=== PATIENT | female | born 1945 | race Caucasian/White ===

== ENCOUNTER 2017-10-30 11:04 | Inpatient (IN) | payer BC, OTHER ==
[2017-10-30] VITALS (21 sets, daily range): BP systolic 172–202; BP diastolic 85–143
[~2017-10-30] VITALS: Ht 177.8 cm; Wt 147.9 kg
[2017-10-30] MEDS ORDERED: INSULIN (11:15)
--- NOTE | 2017-10-30 11:27 | ER Report ---
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 Pt without known fall, injury, or complaint per . ROS limited as pt cannot provide answers other than to shake head when asked if she has pain REVIEW OF SYSTEMS: Constitutional: No fever, no chills. Eyes: No discharge. ENT: unk Cardiovascular: unk Respiratory: unk Gastrointestinal: no vomiting Genitourinary: unk Musculoskeletal: unk Skin: no Neurological: unk Remainder of the 14 system rev: No (unable to assess due to ams) Allergies: Coded Allergies: Sulfa (Sulfonamide Antibiotics) (Verified Allergy, Unknown, 10/30/17) latex (Verified Allergy, Unknown, 10/30/17) Home Meds Reported Medications Solifenacin Succinate (VESICARE) 10 Mg Tablet, 10 MG PO 10/30/17 Propranolol Hcl (PROPRANOLOL HCL) 80 Mg Capcr, 80 MG PO QDAY 10/30/17 Omeprazole (OMEPRAZOLE) 20 Mg Tablet.dr, 20 MG PO BID, TAB 10/30/17 Pregabalin (LYRICA) 50 Mg Capsule, 50 MG PO BID, CAPSULE 10/30/17 Lisinopril (LISINOPRIL) 40 Mg Tablet, 40 MG PO QDAY, TAB 10/30/17 Levothyroxine Sodium (LEVOTHYROXINE SODIUM) 50 Mcg Tablet, 150 MCG PO QDAY, TAB 10/30/17 Fluoxetine Hcl (FLUOXETINE HCL) 20 Mg Capsule, 20 MG PO QDAY, CAPSULE 10/30/17 Bupropion Hcl (BUPROPION XL) 150 Mg Tab.er.24h, 300 MG PO QDAY, TAB 10/30/17 Atorvastatin Calcium (LIPITOR) 40 Mg Tablet, 2 TAB PO QDAY, TAB 10/30/17 Aspirin (Children's Aspirin) 81 Mg Tab.chew 10/30/17 [Insulin] No Conflict Check 10/30/17 Past Medical/Surgical History dm, poss prior stroke Reviewed Nurses Notes: Yes Hx Substance Use Disorder: No Hx Alcohol Use: No Constitutional Vital Sign - Last 24 Hours 10/30/17 10/30/17 10/30/17 10/30/17 11:07 11:15 11:23 11:30 Temp 98.0 Pulse 54 Resp 20 B/P (MAP) 174/95 149/96 (113) 134/105 (115) Pulse Ox 94 O2 Delivery Nasal Cannula O2 Flow Rate 2.0 10/30/17 10/30/17 10/30/17 10/30/17 11:34 11:49 11:54 12:09 Pulse 52 51 52 53 Resp 18 17 21 21 Pulse Ox 95 95 95 93 10/30/17 10/30/17 10/30/17 10/30/17 12:24 12:30 12:39 12:45 Pulse 53 52 Resp 16 15 B/P (MAP) 186/83 (117) 170/90 (116) 167/84 (111) Pulse Ox 93 94 10/30/17 10/30/17 10/30/17 10/30/17 12:50 13:00 13:15 13:20 Pulse 51 58 Resp 16 15 B/P (MAP) 161/82 (108) 171/92 (118) Pulse Ox 93 91 Physical Exam General Appearance: pt opens eyes to command, nods, says 'mmhmm' that seems to be an affirmative to answers, follows simple commands Eyes: Pupils equal and round no pallor or injection. Unable to assess eom or nystagmus ENT, Mouth: Mucous membranes are moist. Respiratory: There are no retractions, lungs are clear to auscultation. Cardiovascular: irreg rate, reg rhythm, no murmurs Gastrointestinal: Abdomen is soft and non tender, no masses, bowel sounds normal. There are multiple areas of days- old ecchymosis accross upper right abd and lower left ( attributes this to fall from three huitron 5 days ago) Neurological: unable to fully assess cn's, though face is symmetric, cannot fully assess mimetics; rases both arms for 5 sec, left wrist tremor noted. Appears to be able to detect lt touch, attempts to plantar flex feet and contracts legs against gravity, similar bilat, neg babinski Skin: Warm and dry, no rashes. Musculoskeletal: Neck is supple non tender. Extremities are nontender, nonswollen. Occ scratches on knees from 5 d ago No back contusions, no ttp spine DIFFERENTIAL DIAGNOSIS: After history and physical exam differential diagnosis was considered for altered mental status including but not limited to hypoglycemia, infectious process, electrolyte abnormality, head injury and intoxicants, cva, ich Medical Decision Making Data Points Result Diagram: 10/30/17 1252 10/30/17 1252 Laboratory Hematology Test 10/30/17 12:18 10/30/17 12:52 10/30/17 13:52 Urine Color Yellow Urine Clarity Cloudy Urine pH 6.0 pH (4.8-9.5) Urine Specific [place] 1.011 Urine Protein 100 mg/dL (NEGATIVE) Urine Glucose (UA) Negative mg/dL (NEGATIVE) Urine Ketones Negative mg/dL (NEGATIVE) Urine Blood Small (NEGATIVE) Urine Nitrite Negative (NEGATIVE) Urine Bilirubin Negative (NEGATIVE) Urine Urobilinogen 4.0 mg/dL (0.2-1.9) Urine Leukocyte Esterase Small (NEGATIVE) Urine RBC 5 /HPF (0-2/HPF) Urine WBC 40 /HPF (0-5/HPF) Urine WBC Clumps Few /HPF Urine Squamous Epithelial Cells None /LPF (NONE-FEW) Urine Bacteria Many /HPF (NONE-FEW) Urine Mucus Few /HPF (NONE-FEW) Red Blood Count 4.76 M/uL (4.17-5.56) Mean Corpuscular Volume 84.1 fL (80.0-96.0) Mean Corpuscular Hemoglobin 27.8 pg (26.0-33.0) Mean Corpuscular Hemoglobin Concent 33.1 g/dL (32.0-36.0) Red Cell Distribution Width 16.4 % (11.5-14.5) Mean Platelet Volume 11.3 fL (7.2-11.1) Neutrophils (%) (Auto) 76.6 % (39.4-72.5) Lymphocytes (%) (Auto) 19.2 % (17.6-49.6) Monocytes (%) (Auto) 3.9 % (4.1-12.4) Eosinophils (%) (Auto) 0.0 % (0.4-6.7) Basophils (%) (Auto) 0.3 % (0.3-1.4) Nucleated RBC Relative Count (auto) 0.0 /100WBC Neutrophils # (Auto) 4.6 K/uL (2.0-7.4) Lymphocytes # (Auto) 1.1 K/uL (1.3-3.6) Monocytes # (Auto) 0.2 K/uL (0.3-1.0) Eosinophils # (Auto) 0.0 K/uL (0.0-0.5) Basophils # (Auto) 0.0 K/uL (0.0-0.1) Nucleated RBC Absolute Count (auto) 0.00 K/uL Sodium Level 143 mmol/L (137-145) Potassium Level 3.8 mmol/L (3.5-5.0) Chloride Level 106 mmol/L (98-107) Carbon Dioxide Level 30 mmol/L (22-31) Blood Urea Nitrogen 26 mg/dl (7-18) Creatinine 1.30 mg/dl (0.52-1.04) Glomerular Filtration Rate Calc 40.5 Random Glucose 151 mg/dl (75-110) Calcium Level 9.2 mg/dl (8.4-10.2) Magnesium Level 1.7 mg/dl (1.7-2.2) Total Bilirubin 1.0 mg/dl (0.2-1.3) Aspartate Amino Transf (AST/SGOT) 35 U/L (0-35) Alanine Aminotransferase (ALT/SGPT) 34 U/L (0-56) Alkaline Phosphatase 112 U/L (0-126) Ammonia 34 UMOL/L (9-33) Troponin I 0.031 ng/ml Total Protein 7.6 g/dl (6.3-8.2) Albumin 3.5 g/dl (3.5-5.0) Lactate 1.1 mmol/L (0.7-2.1) Chemistry Test 10/30/17 12:18 10/30/17 12:52 10/30/17 13:52 Urine Color Yellow Urine Clarity Cloudy Urine pH 6.0 pH (4.8-9.5) Urine Specific [place] 1.011 Urine Protein 100 mg/dL (NEGATIVE) Urine Glucose (UA) Negative mg/dL (NEGATIVE) Urine Ketones Negative mg/dL (NEGATIVE) Urine Blood Small (NEGATIVE) Urine Nitrite Negative (NEGATIVE) Urine Bilirubin Negative (NEGATIVE) Urine Urobilinogen 4.0 mg/dL (0.2-1.9) Urine Leukocyte Esterase Small (NEGATIVE) Urine RBC 5 /HPF (0-2/HPF) Urine WBC 40 /HPF (0-5/HPF) Urine WBC Clumps Few /HPF Urine Squamous Epithelial Cells None /LPF (NONE-FEW) Urine Bacteria Many /HPF (NONE-FEW) Urine Mucus Few /HPF (NONE-FEW) White Blood Count 6.0 k/uL (4.5-11.0) Red Blood Count 4.76 M/uL (4.17-5.56) Hemoglobin 13.3 g/dL (12.0-16.0) Hematocrit 40.1 % (34.0-47.0) Mean Corpuscular Volume 84.1 fL (80.0-96.0) Mean Corpuscular Hemoglobin 27.8 pg (26.0-33.0) Mean Corpuscular Hemoglobin Concent 33.1 g/dL (32.0-36.0) Red Cell Distribution Width 16.4 % (11.5-14.5) Platelet Count 128 K/uL (150-450) Mean Platelet Volume 11.3 fL (7.2-11.1) Neutrophils (%) (Auto) 76.6 % (39.4-72.5) Lymphocytes (%) (Auto) 19.2 % (17.6-49.6) Monocytes (%) (Auto) 3.9 % (4.1-12.4) Eosinophils (%) (Auto) 0.0 % (0.4-6.7) Basophils (%) (Auto) 0.3 % (0.3-1.4) Nucleated RBC Relative Count (auto) 0.0 /100WBC Neutrophils # (Auto) 4.6 K/uL (2.0-7.4) Lymphocytes # (Auto) 1.1 K/uL (1.3-3.6) Monocytes # (Auto) 0.2 K/uL (0.3-1.0) Eosinophils # (Auto) 0.0 K/uL (0.0-0.5) Basophils # (Auto) 0.0 K/uL (0.0-0.1) Nucleated RBC Absolute Count (auto) 0.00 K/uL Glomerular Filtration Rate Calc 40.5 Calcium Level 9.2 mg/dl (8.4-10.2) Magnesium Level 1.7 mg/dl (1.7-2.2) Total Bilirubin 1.0 mg/dl (0.2-1.3) Aspartate Amino Transf (AST/SGOT) 35 U/L (0-35) Alanine Aminotransferase (ALT/SGPT) 34 U/L (0-56) Alkaline Phosphatase 112 U/L (0-126) Ammonia 34 UMOL/L (9-33) Troponin I 0.031 ng/ml Total Protein 7.6 g/dl (6.3-8.2) Albumin 3.5 g/dl (3.5-5.0) Lactate 1.1 mmol/L (0.7-2.1) Urinalysis Test 10/30/17 12:18 Urine Color Yellow Urine Clarity Cloudy Urine pH 6.0 pH (4.8-9.5) Urine Specific [place] 1.011 Urine Protein 100 mg/dL (NEGATIVE) Urine Glucose (UA) Negative mg/dL (NEGATIVE) Urine Ketones Negative mg/dL (NEGATIVE) Urine Blood Small (NEGATIVE) Urine Nitrite Negative (NEGATIVE) Urine Bilirubin Negative (NEGATIVE) Urine Urobilinogen 4.0 mg/dL (0.2-1.9) Urine Leukocyte Esterase Small (NEGATIVE) Urine RBC 5 /HPF (0-2/HPF) Urine WBC 40 /HPF (0-5/HPF) Urine WBC Clumps Few /HPF Urine Squamous Epithelial Cells None /LPF (NONE-FEW) Urine Bacteria Many /HPF (NONE-FEW) Urine Mucus Few /HPF (NONE-FEW) EKG/Imaging EKG Interpretation 12 lead EKG: Rhythm: sinus bradycardia Raven: normal QRS: slightly widened ST segments: normal prolonged qt Monitor Interpretation: Sinus Bradycardia ED Course/Re-evaluation ED Course Pt presents with global ams, without e/o clear focal neurologic deficit; upon further history, states that she fell last night and struck toilet with her back; did not appear to hit head but pt and unsure of this. (Pt also had fall 5 d ago from three huitron while it was stopped; has healing contusions from this but no apparent ttp at sites of injury. No e/o cellulitis or ulcers. pt ultimately improves alertness in ED and repeat neurologic assessment shows 5/5 strength, nl sensation bilaterally without e/o focal deficit. CT's unremarkable; upon catheterization pt with foul smelling, cloudy urine, with many wbc's; given improvement with ivf and this as only focal exam finding upon initial assessment, will tx for uti/ early urosepsis. Continue to reassess and re-evaluate pt's symptoms and progress. D/w and admitted to hospitalist at 1400. Decision to Disposition Date: Oct 30, 2017 Decision to Disposition Time: 14:00 Depart Departure Latest Vital Signs Vital Signs Date Time Temp Pulse Resp B/P (MAP) Pulse Ox O2 Delivery O2 Flow Rate FiO2 10/30/17 13:20 58 15 91 10/30/17 13:15 171/92 (118) 10/30/17 11:23 2.0 10/30/17 11:07 98.0 Nasal Cannula Impression: Primary Impression: Altered mental status Additional Impression: UTI (urinary tract infection) Condition: Improved Disposition: Admitted from ER Problem Qualifiers Primary Impression: Altered mental status Altered mental status type: delirium Qualified Codes: R41.0 - Disorientation, unspecified Additional Impression: UTI (urinary tract infection) Urinary tract infection type: acute cystitis Hematuria presence: without hematuria Qualified Codes: N30.00 - Acute cystitis without hematuria ZACHARY WU MD Oct 30, 2017 11:27
--- NOTE | 2017-10-30 11:32 | EKG ---
FACILITY: [facility] - [place] PATIENT NAME: BOO HARRELL : [id number] MR: [id number] V: [id number] EXAM DATE: ORDERING PHYSICIAN: ZACHARY WU TECHNOLOGIST: JOSEF Vazquez Reason : ARRHYTHMIA Blood Pressure : / mmHG Vent. Rate : 052 BPM Atrial Rate : 052 BPM P-R Int : 184 ms QRS Dur : 118 ms QT Int : 508 ms P-R-T Axes : 009 -39 083 degrees QTc Int : 472 ms Sinus bradycardia Left axis deviation Left ventricular hypertrophy with QRS widening Nonspecific ST and T wave abnormality Prolonged QT Abnormal ECG No previous ECGs available Confirmed by Vin Du ([id number]) on 10/30/2017 10:54:23 PM Referred By: JAZMIN Confirmed By:Vin Lott
[2017-10-30] MEDS ORDERED: BUPR-124 PO (11:33)
[2017-10-30] MEDS ORDERED: PROL80 PO (11:33)
[2017-10-30] MEDS ORDERED: PREG50CA48 PO (11:33)
[2017-10-30] MEDS ORDERED: FLUO-177 PO (11:33)
[2017-10-30] MEDS ORDERED: OMEP-137 PO (11:33)
[2017-10-30] MEDS ORDERED: ASPI-870 (11:33)
[2017-10-30] MEDS ORDERED: ATOR40TA24 PO (11:33)
[2017-10-30] MEDS ORDERED: LISI-374 PO (11:33)
[2017-10-30] MEDS ORDERED: SOLI10TA8 PO (11:33)
[2017-10-30] MEDS ORDERED: LEVO50TA86 PO (11:33)
--- NOTE | 2017-10-30 12:01 | RADIOLOGY IMAGING REPORT ---
FACILITY: [facility] - [place] PATIENT NAME: Maria Victoria Boggs : 1945 MR: [id number] V: [id number] EXAM DATE: ORDERING PHYSICIAN: ZACHARY WU TECHNOLOGIST: Location: [facility] Patient: Maria Victoria Boggs : 1945 Visit/Account:[id number] Date of Sevice: 10/30/2017 CHEST SINGLE AP COMPARISONS: None. ADDITIONAL PERTINENT HISTORY: Hypoxia FINDINGS: Cardiomediastinal silhouette: Negative. Pulmonary vasculature: Negative. Lung steve: Negative. Pleural spaces: Negative. Osseous structures: Negative. Surrounding soft tissues: Negative. IMPRESSION: No evidence of acute cardiopulmonary disease. Report Dictated By: Bobby Ramos MD at 10/30/2017 11:56 AM Report E-Signed By: Bobby Ramos MD at 10/30/2017 11:57 AM WSN:[id number]
--- NOTE | 2017-10-30 12:42 | RADIOLOGY IMAGING REPORT ---
[place] [facility] [place]: Maria Victoria Boggs : 1945 MR: [id number] V: [id number] EXAM DATE: ORDERING PHYSICIAN: ZACHARY UW TECHNOLOGIST: Location: [facility] Patient: Maria Victoria Boggs : 1945 Visit/Account:[id number] Date of Sevice: 10/30/2017 CT Head without contrast and CT Cervical spine: Indication: Decreased level of consciousness. Unresponsive. Fall. Comparison: None available Technique: CT head: Axial CT images were obtained through the brain from the skull base to the verte x without administration of IV contrast. Reformatted coronal and sagittal images were also obtained. Technique: CT cervical spine: Axial CT imaging of the cervical spine was performed. 2-D sagittal and coronal CT reformats were also obtained. One of the following dose optimization techniques was utilized in the performance of this exam: Autom ated exposure control; adjustment of the mA and/or kV according to the patient's size; or use of an i terative reconstruction technique. Specific details can be referenced in the facility's radiology C T exam operational policy. FINDINGS: CT head: No intracranial bleed, midline shift, mass effect, extra-axial fluid collection or hydrocephalus. Age -related cerebral atrophy. Ventricular white matter ischemic changes consistent small vessel disease. Escobar/white matter differentiation appears normal. Mild bilateral internal carotid artery desiccation 's. Escobar/white matter differentiation appears normal. Bony structures show no fractures or lesions. T here is some hyperostosis frontalis. The sinuses and mastoids visualized are clear. CT cervical spine: The vertebral bodies are aligned. No fracture or facet dislocation. No aggressive bony lesions. There is diffuse moderate degenerative changes including disc space narrowing, endplate changes, osteophyt es and facet arthropathy. No discrete bony canal stenosis. Multilevel neural foramina narrowing. Endp lates are maintained. No obvious disc herniation. Prevertebral soft tissues are normal. Surrounding s oft tissues are unremarkable. Lung apices are clear. IMPRESSION: 1. CT of the head shows senescent changes without acute abnormality. 2. No acute osseous or acute alignment abnormality of the cervical spine. Degenerative changes. Report Dictated By: John Abreu at 10/30/2017 12:30 PM Report E-Signed By: John Abreu at 10/30/2017 12:38 PM WSN:[id number]
--- NOTE | 2017-10-30 12:42 | RADIOLOGY IMAGING REPORT ---
FACILITY: [facility] PATIENT NAME: Maria Victoria Boggs : 1945 MR: [id number] V: [id number] EXAM DATE: ORDERING PHYSICIAN: ZACHARY WU TECHNOLOGIST: Location: [facility] - [place] Patient: Maria Victoria Boggs : 1945 Visit/Account:[id number] Date of Sevice: 10/30/2017 CT Head without contrast and CT Cervical spine: Indication: Decreased level of consciousness. Unresponsive. Fall. Comparison: None available Technique: CT head: Axial CT images were obtained through the brain from the skull base to the verte x without administration of IV contrast. Reformatted coronal and sagittal images were also obtained. Technique: CT cervical spine: Axial CT imaging of the cervical spine was performed. 2-D sagittal and coronal CT reformats were also obtained. One of the following dose optimization techniques was utilized in the performance of this exam: Autom ated exposure control; adjustment of the mA and/or kV according to the patient's size; or use of an i terative reconstruction technique. Specific details can be referenced in the facility's radiology C T exam operational policy. FINDINGS: CT head: No intracranial bleed, midline shift, mass effect, extra-axial fluid collection or hydrocephalus. Age -related cerebral atrophy. Ventricular white matter ischemic changes consistent small vessel disease. Escobar/white matter differentiation appears normal. Mild bilateral internal carotid artery desiccation 's. Escobar/white matter differentiation appears normal. Bony structures show no fractures or lesions. T here is some hyperostosis frontalis. The sinuses and mastoids visualized are clear. CT cervical spine: The vertebral bodies are aligned. No fracture or facet dislocation. No aggressive bony lesions. There is diffuse moderate degenerative changes including disc space narrowing, endplate changes, osteophyt es and facet arthropathy. No discrete bony canal stenosis. Multilevel neural foramina narrowing. Endp lates are maintained. No obvious disc herniation. Prevertebral soft tissues are normal. Surrounding s oft tissues are unremarkable. Lung apices are clear. IMPRESSION: 1. CT of the head shows senescent changes without acute abnormality. 2. No acute osseous or acute alignment abnormality of the cervical spine. Degenerative changes. Report Dictated By: John Abreu at 10/30/2017 12:30 PM Report E-Signed By: John Abreu at 10/30/2017 12:38 PM WSN:[id number]
[2017-10-30 13:02] LABS: PLATELET COUNT, AUTOMATED 128 K/uL (150-450)
[2017-10-30] MEDS ORDERED: NS(*) 0.9% 1000 ML BAG 1,000 ML IV ONE (13:35)
[2017-10-30] MEDS ORDERED: cefTRIAXone 2 GM VIAL IVP ONE (13:35)
[2017-10-30] MEDS ORDERED: FLUSH 10 ML SYR IVP PRN (17:30)
[2017-10-30] MEDS ORDERED: ASPIRIN 300 MG SUPP PR ONE (17:45)
[2017-10-30] MEDS ORDERED: NS(*) 0.9% 1000 ML BAG 1,000 ML IV PRN (19:10)
[2017-10-30] MEDS ORDERED: LANI SUBQ (19:32)
--- NOTE | 2017-10-30 20:03 | EKG ---
[place] [facility] [place]IENT NAME: BOO HARERLL : [id number] MR: [id number] V: [id number] EXAM DATE: ORDERING PHYSICIAN: DOMINIC LOTT TECHNOLOGIST: CELSA Vazquez Reason : Blood Pressure : / mmHG Vent. Rate : 053 BPM Atrial Rate : 053 BPM P-R Int : 186 ms QRS Dur : 124 ms QT Int : 534 ms P-R-T Axes : 044 -30 095 degrees QTc Int : 501 ms Sinus bradycardia Left axis deviation Left ventricular hypertrophy with QRS widening and repolarization abnormality Abnormal ECG When compared with ECG of 30-OCT-2017 11:26, T wave inversion now evident in Lateral leads Confirmed by Dominic Du ([id number]) on 10/30/2017 10:56:38 PM Referred By: Confirmed By:Dominic Lott
--- NOTE | 2017-10-30 20:07 | RADIOLOGY IMAGING REPORT ---
FACILITY: [facility] PATIENT NAME: Maria Victoria Boggs : 1945 MR: [id number] V: [id number] EXAM DATE: ORDERING PHYSICIAN: VENKATA MARCIAL TECHNOLOGIST: Location: [facility] - [place], [place] Patient: Maria Victoria Boggs : 1945 Visit/Account:[id number] Date of Sevice: 10/30/2017 EXAMINATION: Brain MRI without IV contrast HISTORY: Aphasia, weakness, confusion. COMPARISON: Head CT from the same day. TECHNIQUE: Multi-planar, multi-sequence brain MRI was performed without IV contrast administration. FINDINGS: Images are mildly degraded by motion artifact. Brain and other intracranial structures: Mild cerebral volume loss with corresponding sulcal and jules tricular prominence. Mild patchy T2 hyperintense foci scattered within the cerebral white matter. No midline shift, mass, hemorrhage, or acute infarct. Calvarium / scalp: Negative. Skull base: Negative. Visualized sinuses / orbits: Negative. Visualized upper neck: A 1.8 cm cyst in the posterior nasopharynx at the midline. IMPRESSION: Images are mildly degraded by motion artifact. No acute intracranial abnormality. No acute infarct. Mild white matter changes, likely chronic small vessel ischemic changes. A 1.8 cm cyst in the posterior nasopharynx at the midline. This could represent a pharyngeal mucosal cyst or Tornwaldt cyst. Report Dictated By: Anthony Gomez MD at 10/30/2017 7:56 PM Report E-Signed By: Anthony Gomez MD at 10/30/2017 8:04 PM WSN:[id number]
[2017-10-30] MEDS: hydrALAZINE HCL 20 MG/ML VIAL IVP PRN (21:05)
--- NOTE | 2017-10-30 21:21 | History & Physical ---
History of Present Illness Chief Complaint AMS History of Present Illness 72F presented with decreased LOC when was unable to awaken her. Fell last night sometime before 1800 backwards and hit head on toilet. found her with impact hard enough that the toilet was cracked. Unknown if lost consciousness. In ER continued to have AMS. CT head and spine negative for Fx, bleed. UA was weakly positive and patient admitted for UTI. On arrival to floor patient is very lethargic GCS 9, improved when I arrived to evaluate to approx 11. Word finding difficulty noted and weak lower R extremity with possible L side facial droop. MRI ordered which was negative for infarct, mass effect. TSH WNL. History Problems: (1) Diabetes (2) Hypothyroid (3) Morbid obesity with BMI of 40.0-44.9, adult Home Meds Reported Medications Insulin Glargine (LANTUS) 100 Unit/Ml Soln, 1 UNIT SUBQ DAILY, ML 10/30/17 Solifenacin Succinate (VESICARE) 10 Mg Tablet, 10 MG PO 10/30/17 Propranolol Hcl (PROPRANOLOL HCL) 80 Mg Capcr, 80 MG PO QDAY 10/30/17 Omeprazole (OMEPRAZOLE) 20 Mg Tablet.dr, 20 MG PO BID, TAB 10/30/17 Pregabalin (LYRICA) 50 Mg Capsule, 50 MG PO BID, CAPSULE 10/30/17 Lisinopril (LISINOPRIL) 40 Mg Tablet, 40 MG PO QDAY, TAB 10/30/17 Levothyroxine Sodium (LEVOTHYROXINE SODIUM) 50 Mcg Tablet, 150 MCG PO QDAY, TAB 10/30/17 Fluoxetine Hcl (FLUOXETINE HCL) 20 Mg Capsule, 20 MG PO QDAY, CAPSULE 10/30/17 Bupropion Hcl (BUPROPION XL) 150 Mg Tab.er.24h, 300 MG PO QDAY, TAB 10/30/17 Atorvastatin Calcium (LIPITOR) 40 Mg Tablet, 2 TAB PO QDAY, TAB 10/30/17 Aspirin (Children's Aspirin) 81 Mg Tab.chew 10/30/17 Discontinued Reported Medications [Insulin] No Conflict Check 10/30/17 Allergies: Coded Allergies: Sulfa (Sulfonamide Antibiotics) (Verified Allergy, Unknown, 10/30/17) latex (Verified Allergy, Unknown, 10/30/17) Patient History: FHx: cancer of ovary Hx Alcohol Use: No (Unable to retreive info at this time d/t pt MS.) Hx Substance Use Disorder: No Review of Systems Other Unable to obtain 2/2 mental status Exam Vital Signs Vital Signs Date Time Temp Pulse Resp B/P (MAP) Pulse Ox O2 Delivery O2 Flow Rate FiO2 10/30/17 21:15 98.4 55 15 186/90 (122) 92 Nasal Cannula 2.0 General Appearance: Other (lethargic, ) Neuro: Other (word finding difficulties.) Eyes: PERRLA ENT: Normal Neck: No Masses (bruising on occiput) Cardiovascular: Normal Rhythm & Peripheral Pulses Respiratory: No Respiratory Distress Chest: No Tenderness GI: Abd Soft and Non-Tender Lymph: Cervical Nodes Benign Musculoskeletal: Other (+ lower extremity weakness) Extremities: Soft and Non Tender, Warm, Pulses, Perfused, Edema Integumentary: Skin Intact without Lesion / Mass Medical Decision Making Data Points Result Diagram: 10/30/17 1252 10/30/17 1252 Assessment and Plan Problems: (1) Altered mental status Status: Acute Assessment & Plan: CT negative for bleed or mass effect, no Fx, MRI negative for acute infarct. No hypoglycemia, TSH wnl. Check T3/T4. Concern for closed head injury with decreased level of consciousness. GCS 11 at admission, improved to 12. Continues to have word finding problems and answers yep at times when cant come up with answer. ASA given rectally as patient unsafe to swallow. Call placed to trauma services in [facility] to discuss case given limited neurologic availability at [facility]. (2) Diabetes Assessment & Plan: On Lantus, accucheck achs. Will decrease Lantus if possibly limited PO intake tomorrow. (3) Morbid obesity with BMI of 40.0-44.9, adult Assessment & Plan: BMI 44.2. (4) Hypothyroid Assessment & Plan: On Levothyroxine, continue. (5) Asymptomatic bacteriuria Assessment & Plan: Questionable UA, no signs symptoms infections. Will monitor off Abx at this time. Venous Thromboembolism Antithrombotics Is Pt On Any Antithrombotics?: Yes Exam Sepsis Risk: No Definite Risk Problem Qualifiers (1) Altered mental status: Coma depth: Naldo coma 9-12 Coma timing: at hospital admission DOMINIC RAUSCH DO Oct 30, 2017 21:21
[2017-10-31] VITALS (63 sets, daily range): BP systolic 160–202; BP diastolic 75–144; Ht 177.8 cm; Wt 147.9 kg
[2017-10-31] MEDS: LABETALOL HCL 100 MG/20ML VIAL IVP PRN ×4 (00:13→19:30)
[2017-10-31 05:35] LABS: PLATELET COUNT, AUTOMATED 96 K/uL (150-450)
--- NOTE | 2017-10-31 08:46 | Hospitalist Progress Note ---
Subjective Progress Notes Subjective She is awake and alert. She will answer some simple questions, but is still oriented only to person. No fever. Physical Exam Vital Signs Date Time Temp Pulse Resp B/P (MAP) Pulse Ox O2 Delivery O2 Flow Rate FiO2 10/31/17 06:15 98.5 54 18 160/80 (106) 91 2.0 10/31/17 03:00 Nasal Cannula Intake and Output 10/31/17 06:59 Intake Total 1815 ml Output Total 1900 ml Balance -85 ml Intake IV Total 1815 ml Output Urine Total 1900 ml # Bowel Movements 1 General Appearance: Alert, Awake Neuro: Other (some rigidity in all extremities upper slightly > lower/she does move all extremities very slowly/generalized weakness all groups, but no obvious focal deficits/she does not follow all commands, but is able to do some simple requests) Eyes: PERRLA ENT: Oropharynx Clear, Other (mucosa dry) Neck: No Masses, Other (short/thick ) Cardiovascular: Regular Rate and Rhythm (no murmur noted) Respiratory: Other (poor effort, but fairly clear) Chest: No Tenderness GI: Other (obese/soft/nontender/BS present) Lymph: No Adenopathy Extremities: Warm, Perfused Integumentary: Generalized Fragile Skin Result Diagram: 10/31/1752010/31/17520 Monitor Interpretation: Sinus Bradycardia Assessment and Plan Problems: (1) Altered mental status Status: Acute Assessment & Plan: CT negative for bleed or mass effect and MRI negative for acute infarct. No hypoglycemia, TSH in normal range - T3/T4 pending. She did have several falls with at least two closed head injuries in past few days. She also appears to have UTI (on Rocephin). She is additionally on at least four medications which could contribute to potential serotonin syndrome (fluoxetine, bupropion, pregabalin, solifenacin). Overall, she has had some minor improvements over the past 12 hours. Will plan on treating UTI, holding her usual medications, giving IV fluids, monitoring closely in ICU. If she does not continue to improve, will need to consider further evaluation. (2) Diabetes Assessment & Plan: Follow glucoses, use SSI if needed. Will resume ADA diet when safe to take PO. At that time, would resume her Lantus as well. (3) Hypothyroid Assessment & Plan: On Levothyroxine. Will give IV while she is not taking PO well. (4) UTI (urinary tract infection) Status: Acute Assessment & Plan: On IV Rocephin. Culture pending. (5) Closed head injury Status: Acute Assessment & Plan: She has had at least two significant falls where she struck her head. She may have a component of concussion/post-concussion symptoms as well. (6) Morbid obesity with BMI of 40.0-44.9, adult Assessment & Plan: BMI 44.2. Exam Sepsis Risk: No Definite Risk Problem Qualifiers (1) Altered mental status: Coma depth: [place] coma 9-12 Coma timing: at hospital admission (2) UTI (urinary tract infection): Urinary tract infection type: acute cystitis Hematuria presence: without h ematuria Qualified Codes: N30.00 - Acute cystitis without hematuria ELA MILTON MD Oct 31, 2017 08:46
[2017-10-31] MEDS: cefTRIAXone 1 GM VIAL IVP SCH (08:51)
[2017-10-31] MEDS: NS(*) 0.9% 1000 ML BAG 1,000 ML IV PRN ×2 (08:55→17:16)
[2017-10-31] MEDS ORDERED: ENOXAPARIN 40 MG/0.4ML SYR SC SCH (09:00)
[2017-10-31] MEDS: LEVOTHYROXINE SOD 100 MCG VIAL IVP SCH (09:26)
[2017-10-31] MEDS: hydrALAZINE HCL 20 MG/ML VIAL IVP PRN ×2 (14:54→21:53)
[2017-11-01] VITALS (47 sets, daily range): BP systolic 142–191; BP diastolic 59–99
[2017-11-01] MEDS: LABETALOL HCL 100 MG/20ML VIAL IVP PRN ×4 (01:08→17:46)
[2017-11-01] MEDS: NS(*) 0.9% 1000 ML BAG 1,000 ML IV PRN ×3 (01:08→18:36)
[2017-11-01 05:01] LABS: PLATELET COUNT, AUTOMATED 99 K/uL (150-450)
[2017-11-01] MEDS: cefTRIAXone 1 GM VIAL IVP SCH (09:07)
[2017-11-01] MEDS: LEVOTHYROXINE SOD 100 MCG VIAL IVP SCH (09:22)
--- NOTE | 2017-11-01 09:24 | Hospitalist Progress Note ---
Subjective Progress Notes Subjective This patient was admitted for altered mental status. She had no acute events overnight. Patient Complains of: Cardiovascular: No: Chest Pain Respiratory: No: Shortness of Breath Physical Exam Vital Signs Date Time Temp Pulse Resp B/P (MAP) Pulse Ox O2 Delivery O2 Flow Rate FiO2 11/01/17 09:00 60 15 167/70 (102) 93 Nasal Cannula 4.0 11/01/17 08:00 99.5 Intake and Output 11/01/17 06:59 Intake Total 1187 ml Output Total 2200 ml Balance -1013 ml Intake IV Total 1187 ml Output Urine Total 2200 ml # Bowel Movements 4 Neuro: No Gross deficits Eyes: PERRLA Cardiovascular: Regular Rate and Rhythm Respiratory: Clear to Auscultation GI: Soft and Non-Tender Extremities: No Edema Integumentary: No Cyanosis Result Diagram: 11/01/17 0458 11/01/17 0458 Monitor Interpretation: Sinus Bradycardia Assessment and Plan Problems: (1) Altered mental status Status: Acute Assessment & Plan: She did present with altered mental status. A CT scan of the head was unremarkable and her labs have not shown an obvious etiology. Her reports that she had a similar event when her thyroid was found to be ab normal. Her thyroid panel is normal on this admission. (2) Diabetes Assessment & Plan: She is on chronic treatment with Lantus. We are currently covering her with sliding scale level #2. (3) Hypothyroid Assessment & Plan: She is on chronic treatment with Synthroid, which is currently being given IV. (4) UTI (urinary tract infection) Status: Acute Assessment & Plan: Her urine showed small leukocytes, but she is afebrile and her WBC is normal. She is on empiric treatment with ceftriaxone. (5) Closed head injury Status: Acute Assessment & Plan: She has had at least two significant falls where she struck her head. (6) Morbid obesity with BMI of 40.0-44.9, adult Assessment & Plan: BMI 44.2. Exam Sepsis Risk: No Definite Risk Problem Qualifiers (1) Altered mental status: Coma depth: [place] coma 9-12 Coma timing: at hospital admission (2) Diabetes: Diabetes mellitus type: type 2 (3) UTI (urinary tract infection): Urinary tract infection type: acute cystitis Hematuria presence: without hematuria Qualified Codes: N30.00 - Acute cystitis without hematuria TONY VILLELA DO Nov 01, 2017 09:24
[2017-11-01] MEDS: ACETAMINOPHEN(*)1000 MG/100 ML 100 ML IVPB PRN ×2 (09:32→19:53)
[2017-11-01] MEDS: INSULIN HUM LISPRO 100 UN/ML 3 ML VIAL SUBQ PRN (12:11)
[2017-11-01] MEDS: hydrALAZINE HCL 20 MG/ML VIAL IVP PRN (12:12)
[2017-11-01] MEDS: PROMETHAZINE 25 MG/ML 1 ML AMP IVP PRN (16:01)
[2017-11-02] VITALS (26 sets, daily range): BP systolic 141–197; BP diastolic 62–98
[2017-11-02] MEDS: NS(*) 0.9% 1000 ML BAG 1,000 ML IV PRN (02:03)
[2017-11-02] MEDS: PROMETHAZINE 25 MG/ML 1 ML AMP IVP PRN (02:04)
[2017-11-02 05:21] LABS: PLATELET COUNT, AUTOMATED 84 K/uL (150-450)
[2017-11-02] MEDS ORDERED: ALBU8.5H IH (09:01)
[2017-11-02] MEDS ORDERED: OXYB10TA21 PO (09:01)
[2017-11-02] MEDS ORDERED: FURO40TA35 PO (09:01)
[2017-11-02] MEDS ORDERED: HYDR-389 PO (09:01)
[2017-11-02] MEDS ORDERED: FLUO-177 PO (09:01)
[2017-11-02] MEDS ORDERED: LIRAGLUTIDE INJ (09:01)
[2017-11-02] MEDS ORDERED: ALBU2.5V36 INH (09:01)
[2017-11-02] MEDS ORDERED: FLUT1DIS28 IH (09:01)
[2017-11-02] MEDS ORDERED: INSU100I30 SQ (09:01)
[2017-11-02] MEDS ORDERED: ALLO-119 PO (09:01)
[2017-11-02] MEDS: LISINOPRIL 20 MG TAB PO SCH (09:08)
[2017-11-02] MEDS: LEVOTHYROXINE SOD 0.150 MG TAB PO SCH (09:08)
[2017-11-02] MEDS: SALMETEROL/FLUTIC 250/50 1 INH INH SCH ×2 (10:10→17:50)
[2017-11-02] MEDS ORDERED: ALBUTEROL/IPRATROPIUM 3 ML NEB NEB PRN (10:10)
[2017-11-02] MEDS ORDERED: FLUoxetine HCL 20 MG CAP PO SCH (10:20)
--- NOTE | 2017-11-02 10:20 | Hospitalist Progress Note ---
Subjective Progress Notes Subjective 72F admitted for AMS, suddenly awake this am. Answering questions appropriately, denies any concerns or memory of falling and hitting head. Patient Complains of: Neurological: No: Syncope, Confusion, Weakness, Slurred Speech Physical Exam Vital Signs Date Time Temp Pulse Resp B/P (MAP) Pulse Ox O2 Delivery O2 Flow Rate FiO2 11/02/17 10:00 54 11/02/17 09:30 19 189/82 (117) 93 Nasal Cannula 2.0 11/02/17 08:30 99.4 Intake and Output 11/02/17 06:59 Intake Total 3266 ml Output Total 1100 ml Balance 2166 ml Intake Oral 250 ml IV Total 3016 ml Output Urine Total 1100 ml # Bowel Movements 4 General Appearance: Alert, Awake, No Acute Distress Neuro: No Gross deficits Eyes: PERRLA ENT: Normal Neck: No Masses Cardiovascular: Normal Rhythm & Peripheral Pulses Respiratory: Clear to Auscultation Chest: No Tenderness : Normal Lymph: Cervical Nodes Benign Musculoskeletal: No Weakness/Pain Extremities: Soft and Non Tender, Warm, Pulses, Perfused; No Edema Integumentary: Skin Intact without Lesion / Mass (occipital bruising, Arm bruising.) Psych: Alert & Oriented X3 Result Diagram: 11/02/17 0500 11/01/17 0458 Monitor Interpretation: Sinus Bradycardia Assessment and Plan Problems: (1) Altered mental status Status: Acute Assessment & Plan: She did present with altered mental status. A CT and MRI scan of the head was unremarkable and her labs have not shown an obvious etiology. Her reports that she had a similar event when her thyroid was found to be abnormal. Her thyroid panel is normal on this admission. Consideration of closed head injury vs conversion as cause. Improved. (2) Diabetes Assessment & Plan: She is on chronic treatment with Lantus 80U . Lantus restarted at 10U as she resumes PO. We are currently covering her with sliding scale level #2. (3) Hypothyroid Assessment & Plan: She is on chronic treatment with Synthroid, PO resumed. (4) UTI (urinary tract infection) Status: Acute Assessment & Plan: Her urine showed small leukocytes, but she is afebrile and her WBC is normal. Completed treatment with empiric ceftriaxone. (5) Closed head injury Status: Acute Assessment & Plan: She has had at least two significant falls where she struck her head. (6) Morbid obesity with BMI of 40.0-44.9, adult Assessment & Plan: BMI 44.2. Exam Sepsis Risk: No Definite Risk Problem Qualifiers (1) Altered mental status: Coma depth: [place] coma 9-12 Coma timing: at hospital admission (2) Diabetes: Diabetes mellitus type: type 2 (3) UTI (urinary tract infection): Urinary tract infection type: acute cystitis Hematuria presence: without hematuria Qualified Codes: N30.00 - Acute cystitis without hematuria DOMINIC RAUSCH DO Nov 02, 2017 10:20
[2017-11-02] MEDS: PANTOPRAZOLE SOD 40 MG TABEC PO SCH (10:32)
[2017-11-02] MEDS: PREGABALIN 50 MG CAP PO SCH ×2 (10:32→21:42)
[2017-11-02] MEDS: INSULIN HUM LISPRO 100 UN/ML 3 ML VIAL SUBQ PRN (12:33)
[2017-11-02] MEDS: FUROSEMIDE 40 MG TAB PO SCH (13:56)
[2017-11-02] MEDS ORDERED: LOPERAMIDE HCL 2 MG CAP PO PRN (21:00)
[2017-11-02] MEDS ORDERED: ATORVASTATIN 40 MG TAB PO SCH (21:00)
[2017-11-02] MEDS ORDERED: INSULIN GLARGINE 100 U/ML 3 ML PEN SUBQ SCH (21:00)
[2017-11-02] MEDS ORDERED: buPROPion XL 150 MG TABCR PO SCH (21:00)
[2017-11-03 04:14] VITALS: BP 171/84
[2017-11-03] MEDS: SALMETEROL/FLUTIC 250/50 1 INH INH SCH (05:39)
[2017-11-03] MEDS: LEVOTHYROXINE SOD 0.150 MG TAB PO SCH (05:44)
[2017-11-03 07:40] VITALS: BP 190/98
[2017-11-03] MEDS ORDERED: POTASSIUM CHL 20 MEQ TABCR PO SCH (08:00)
[2017-11-03] MEDS: ASPIRIN 81 MG ENTERIC COATED PO SCH ×2 (08:58→09:13)
[2017-11-03] MEDS: FUROSEMIDE 40 MG TAB PO SCH (08:58)
[2017-11-03] MEDS: LISINOPRIL 20 MG TAB PO SCH ×2 (08:58→09:13)
[2017-11-03] MEDS: PANTOPRAZOLE SOD 40 MG TABEC PO SCH ×2 (08:58→09:12)
[2017-11-03] MEDS: ALLOPURINOL 300 MG TAB PO SCH ×2 (08:58→09:13)
[2017-11-03] MEDS ORDERED: POTASSIUM CHL 20 MEQ TABCR PO ONE (09:10)
[2017-11-03] MEDS ORDERED: INSU100I30 SQ (09:41)
[2017-11-03] MEDS ORDERED: LEVO150T72 PO (09:41)
[2017-11-03] MEDS ORDERED: POTA10CA40 PO (09:45)
[2017-11-03] MEDS ORDERED: CIPR-215 PO (09:45)
--- NOTE | 2017-11-03 10:13 | Hospitalist Depart ---
Discharge Summary Reason for Hosp/Final Diag: (1) Altered mental status Status: Acute Hospital Course & Plan: She presented with altered mental status. She did have an UTI with Enterobacter cloacae (and was treated with IV Rocephin and subsequent transition to oral ciprofloxacin). CT and MRI scans of the brain/head were unremarkable. Her metabolic studies were unremarkable and her labs did not show an obvious etiology. Her thyroid panel was normal on this admission. She did have at least two falls with closed head injury and may have had a component of concussion/post-concussion symptoms. She also has been chronically treated with multiple centrally acting medications including Prozac, Wellbutrin, Lyrica, Oxybutynin, and Vesicare. All of these medications were held and only Prozac was restarted at the time of discharge. It is possible all of these conditions (UTI, head injury, adverse medication reaction) were a factor in her acute problem. It is also possible only one may have been the eliciting factor. She showed continual improvement throughout her stay. She was able to work with PT/OT. She was ambulating well. She was eating and drinking normally. She was felt to be stable and ready for travel home. She will need to follow up closely with her primary care to discuss all of this and decide if she is to resume any of the medications we have stopped/held at this time. (2) Diabetes Hospital Course & Plan: She has been on chronic treatment with Lantus 80 units daily and Victoza. Her glucoses were under good control on ADA diet and low dose Lantus 10 units SQ qHS. We did cover her with sliding scale during her stay. She will need to discuss with her primary care provider whether or not to resume her previous regimen. (3) Hypothyroid Hospital Course & Plan: She is on chronic treatment with Synthroid. Her TSH was in normal range was was free T4. Free T3 was slightly low. No changes were made at this time. (4) UTI (urinary tract infection) Status: Acute Hospital Course & Plan: Her urine culture grew Enterobacter. She was started on empiric treatment with IV ceftriaxone. She will finish a full course of therapy with Cipro 250mg PO BID x 4 more days. She will need follow up UA and culture with her primary care provider in 1-2 weeks. (5) Closed head injury Status: Acute Hospital Course & Plan: She has had at least two significant falls where she struck her head. Her CT scan and MRI of brain/head were unremarkable. (6) Morbid obesity with BMI of 40.0-44.9, adult Hospital Course & Plan: BMI 44.2. Departure Weight (Pounds): 326 Weight (Ounces): 7.0 Result Diagram: 11/02/17 0500 11/03/17 0558 Item Value Date Time White Blood Count 6.0 k/uL 10/30/17 1252 Hemoglobin 13.3 g/dL 10/30/17 1252 Hematocrit 40.1 % 10/30/17 1252 Platelet Count 128 K/uL L 10/30/17 1252 Platelet Count 96 K/uL L 10/31/17 0521 Hematocrit 38.7 % 10/31/17 0521 Hemoglobin 12.8 g/dL 10/31/17 0521 White Blood Count 5.8 k/uL 10/31/17 0521 White Blood Count 6.6 k/uL 11/01/17 0458 Hemoglobin 12.7 g/dL 11/01/17 0458 Hematocrit 37.8 % 11/01/17 0458 Platelet Count 99 K/uL L 11/01/17 0458 Sodium Level 143 mmol/L 10/30/17 1252 Potassium Level 3.8 mmol/L 10/30/17 1252 Chloride Level 106 mmol/L 10/30/17 1252 Carbon Dioxide Level 30 mmol/L 10/30/17 1252 Blood Urea Nitrogen 26 mg/dl H 10/30/17 1252 Creatinine 1.30 mg/dl H 10/30/17 1252 Glomerular Filtration Rate Calc 40.5 10/30/17 1252 Random Glucose 151 mg/dl H 10/30/17 1252 Calcium Level 9.2 mg/dl 10/30/17 1252 Total Bilirubin 1.0 mg/dl 10/30/17 1252 Aspartate Amino Transf (AST/SGOT) 35 U/L 10/30/17 1252 Alkaline Phosphatase 112 U/L 10/30/17 1252 Ammonia 34 UMOL/L H 10/30/17 1252 Alanine Aminotransferase (ALT/SGPT) 34 U/L 10/30/17 1252 Total Protein 7.6 g/dl 10/30/17 1252 Albumin 3.5 g/dl 10/30/17 1252 Thyroid Stimulating Hormone (TSH) 2.14 uIU/ml 10/30/17 1252 Magnesium Level 1.7 mg/dl 10/30/17 1252 Free Triiodothyronine 1.7 pg/mL L 10/31/17 0521 Free Thyroxine 1.57 ng/dl 10/31/17 0521 Lactate 1.1 mmol/L 10/30/17 1352 Cholesterol/HDL Ratio 3.5 10/31/17 0521 Cholesterol Ratio (LDL/HDL) 2.02 10/31/17 0521 Percent HDL Cholesterol 28.0 % 10/31/17 0521 HDL Cholesterol 37 mg/dl 10/31/17 0521 VLDL Cholesterol 18 mg/dl 10/31/17 0521 LDL Cholesterol 75 mg/dl 10/31/17 0521 Cholesterol Level 130 mg/dl 10/31/17 0521 Triglycerides Level 91 mg/dl 10/31/17 0521 Albumin 2.9 g/dl L 11/01/17 0458 Total Protein 6.7 g/dl 11/01/17 0458 Alkaline Phosphatase 99 U/L 11/01/17 0458 Alanine Aminotransferase (ALT/SGPT) 28 U/L 11/01/17 0458 Aspartate Amino Transf (AST/SGOT) 33 U/L 11/01/17 0458 Total Bilirubin 1.0 mg/dl 11/01/17 0458 Calcium Level 9.1 mg/dl 11/01/17 0458 Random Glucose 168 mg/dl H 11/01/17 0458 Glomerular Filtration Rate Calc 49.1 11/01/17 0458 Creatinine 1.10 mg/dl H 11/01/17 0458 Blood Urea Nitrogen 22 mg/dl H 11/01/17 0458 Carbon Dioxide Level 23 mmol/L 11/01/17 0458 Chloride Level 112 mmol/L H 11/01/17 0458 Potassium Level 3.5 mmol/L 11/01/17 0458 Sodium Level 145 mmol/L 11/01/17 0458 Urine Mucus Few /HPF 10/30/17 1218 Urine Bacteria Many /HPF H 10/30/17 1218 Urine Squamous Epithelial Cells None /LPF 10/30/17 1218 Urine WBC Clumps Few /HPF 10/30/17 1218 Urine WBC 40 /HPF 10/30/17 1218 Urine RBC 5 /HPF 10/30/17 1218 Urine Leukocyte Esterase Small H 10/30/17 1218 Urine Urobilinogen 4.0 mg/dL H 10/30/17 1218 Urine Bilirubin Negative 10/30/17 1218 Urine Nitrite Negative 10/30/17 1218 Urine Blood Small 10/30/17 1218 Urine Ketones Negative mg/dL 10/30/17 1218 Urine Glucose (UA) Negative mg/dL 10/30/17 1218 Urine Protein 100 mg/dL 10/30/17 1218 Urine Specific [place] 1.011 10/30/17 1218 Urine pH 6.0 pH 10/30/17 1218 Urine Clarity Cloudy 10/30/17 1218 Urine Color Yellow 10/30/17 1218 [facility] *LIVE* [address] [place] [address] ZEINA LIMA M.D., DIRECTOR OF LABORATORY SERVICES DOMINIC MOORE M.D., PATHOLOGIST RUN DATE: 11/02/17 Specimen Inquiry Report PAGE 1 RUN TIME: 0945 PATIENT: MARIA VICTORIA BOGGS ACCT: [id number] LOC: ICU U: [id number] AGE/SX: 72/F ROOM: [facility] RE10/30/[address]: DOMINIC DU : 1945 BED: 260 DIS: STATUS: ADM IN TLOC: SPEC #: [id number] EVE: 10/31/17-UNK STATUS: COMP REQ #: [id number] RECD: 10/31/17-1005 [facility] DR: ELA MILTON MD SOURCE: RAVI ENTR: 10/31/[address] [facility] [address]: DOMINIC DU DO [facility]: ORDERED: CULT URINE COMMENTS: Comments: please use specimen obtained in ER Procedure Result Verified URINE CULTURE Final 11/02/17 Organism 1 ENTEROBACTER CLOACAE COMPLEX >100,000 COL/ML BOTH COLONY TYPES SAME ORGANISM E ERIKA CMPX M.I.C. RX --------- --- CEFAZOLIN >=64 R CEFTAZIDIME <=1 S CEFTRIAXONE <=1 S CEFEPIME <=1 S CEFOXITIN >=64 R ERTAPENEM <=0.5 S CIPROFLOXACIN <=0.25 S GENTAMICIN <=1 S IMIPENEM <=0.25 S LEVOFLOXACIN <=0.12 S NITROFURANTOIN 64 I PIPERACILLIN/TAZOBACTAM <=4 S TOBRAMYCIN <=1 S TRIMETHOPRIM/SULFAMETHOXAZOLE <=20 S -------- ---- Imaging PATIENT NAME: Maria Victoria Boggs : 1945 MR: [id number] V: [id number] EXAM DATE: ORDERING PHYSICIAN: ZACHARY WU TECHNOLOGIST: Location: [facility] Patient: Maria Victoria Boggs : 1945 Visit/Account:[id number] Date of Sevice: 10/30/2017 CT Head without contrast and CT Cervical spine: Indication: Decreased level of consciousness. Unresponsive. Fall. Comparison: None available Technique: CT head: Axial CT images were obtained through the brain from the skull base to the vertex without administration of IV contrast. Reformatted coronal and sagittal images were also obtained. Technique: CT cervical spine: Axial CT imaging of the cervical spine was performed. 2-D sagittal and coronal CT reformats were also obtained. One of the following dose optimization techniques was utilized in the performance of this exam: Automated exposure control; adjustment of the mA and/or kV according to the patient's size; or use of an iterative reconstruction technique. Specific details can be referenced in the facility's radiology CT exam operational policy. FINDINGS: CT head: No intracranial bleed, midline shift, mass effect, extra-axial fluid collection or hydrocephalus. Age-related cerebral atrophy. Ventricular white matter ischemic changes consistent small vessel disease. Escobar/white matter differentiat ion appears normal. Mild bilateral internal carotid artery desiccation's. Escobar/white matter differentiation appears normal. Bony structures show no fractures or lesions. There is some hyperostosis frontalis. The sinuses and mastoids visualized are clear. CT cervical spine: The vertebral bodies are aligned. No fracture or facet dislocation. No aggressive bony lesions. There is diffuse moderate degenerative changes including disc space narrowing, endplate changes, osteophytes and facet arthropathy. No discrete bony canal stenosis. Multilevel neural foramina narrowing. Endplates are maintained. No obvious disc herniation. Prevertebral soft tissues are normal. Surrounding soft tissues are unremarkable. Lung apices are clear. IMPRESSION: 1. CT of the head shows senescent changes without acute abnormality. 2. No acute osseous or acute alignment abnormality of the cervical spine. Degenerative changes. Report Dictated By: John Abreu at 10/30/2017 12:30 PM Report E-Signed By: John Abreu at 10/30/2017 12:38 PM WSN:[id number] PATIENT NAME: Maria Victoria Boggs : 1945 MR: [id number] V: [id number] EXAM DATE: [id number] ORDERING PHYSICIAN: ZACHARY WU TECHNOLOGIST: Location: [facility] Patient: Maria Victoria Boggs : 1945 Visit/Account:[id number] Date of Sevice: 10/30/2017 CHEST SINGLE AP COMPARISONS: None. ADDITIONAL PERTINENT HISTORY: Hypoxia FINDINGS: Cardiomediastinal silhouette: Negative. Pulmonary vasculature: Negative. Lung steve: Negative. Pleural spaces: Negative. Osseous structures: Negative. Surrounding soft tissues: Negative. IMPRESSION: No evidence of acute cardiopulmonary disease. Report Dictated By: Bobby Ramos MD at 10/30/2017 11:56 AM Report E-Signed By: Bobby Ramos MD at 10/30/2017 11:57 AM WSN:[id number] PATIENT NAME: Maria Victoria Boggs : 1945 MR: [id number] V: [id number] EXAM DATE: [id number] ORDERING PHYSICIAN: ZACHARY WU TECHNOLOGIST: Location: [facility] Patient: Maria Victoria Boggs : 1945 Visit/Account:[id number] Date of Sevice: 10/30/2017 CT Head without contrast and CT Cervical spine: Indication: Decreased level of consciousness. Unresponsive. Fall. Comparison: None available Technique: CT head: Axial CT images were obtained through the brain from the skull base to the vertex without administration of IV contrast. Reformatted coronal and sagittal images were also obtained. Technique: CT cervical spine: Axial CT imaging of the cervical spine was performed. 2-D sagittal and coronal CT reformats were also obtained. One of the following dose optimization techniques was utilized in the performance of this exam: Automated exposure control; adjustment of the mA and/or kV according to the patient's size; or use of an iterative reconstruction technique. Specific details can be referenced in the facility's radiology CT exam operational policy. FINDINGS: CT head: No intracranial bleed, midline shift, mass effect, extra-axial fluid collection or hydrocephalus. Age-related cerebral atrophy. Ventricular white matter ischemic changes consistent small vessel disease. Escobar/white matter differentiation appears normal. Mild bilateral internal carotid artery desiccation's. Escobar/white matter differentiation appears normal. Bony structures show no fractures or lesions. There is some hyperostosis frontalis. The sinuses and mastoids visualized are clear. CT cervical spine: The vertebral bodies are aligned. No fracture or facet dislocation. No aggressive bony lesions. There is diffuse moderate degenerative changes including disc space narrowing, endplate changes, osteophytes and facet arthropathy. No discrete bony canal stenosis. Multilevel neural foramina narrowi ng. Endplates are maintained. No obvious disc herniation. Prevertebral soft tissues are normal. Surrounding soft tissues are unremarkable. Lung apices are clear. IMPRESSION: 1. CT of the head shows senescent changes without acute abnormality. 2. No acute osseous or acute alignment abnormality of the cervical spine. Degenerative changes. Report Dictated By: John Abreu at 10/30/2017 12:30 PM Report E-Signed By: John Abreu at 10/30/2017 12:38 PM WSN:[id number] PATIENT NAME: Maria Victoria Boggs : 1945 MR: [id number] V: [id number] EXAM DATE: ORDERING PHYSICIAN: VENKATA MARCIAL TECHNOLOGIST: Location: [facility] Patient: Maria Victoria Boggs : 1945 Visit/Account:[id number] Date of Sevice: 10/30/2017 EXAMINATION: Brain MRI without IV contrast HISTORY: Aphasia, weakness, confusion. COMPARISON: Head CT from the same day. TECHNIQUE: Multi-planar, multi-sequence brain MRI was performed without IV con trast administration. FINDINGS: Images are mildly degraded by motion artifact. Brain and other intracranial structures: Mild cerebral volume loss with corresponding sulcal and ventricular prominence. Mild patchy T2 hyperintense foci scattered within the cerebral white matter. No midline shift, mass, hemorrhage, or acute infarct. Calvarium / scalp: Negative. Skull base: Negative. Visualized sinuses / orbits: Negative. Visualized upper neck: A 1.8 cm cyst in the posterior nasopharynx at the midline. IMPRESSION: Images are mildly degraded by motion artifact. No acute intracranial abnormality. No acute infarct. Mild white matter changes, likely chronic small vessel ischemic changes. A 1.8 cm cyst in the posterior nasopharynx at the midline. This could represent a pharyngeal mucosal cyst or Tornwaldt cyst. Report Dictated By: Anthony Gomez MD at 10/30/2017 7:56 PM Report E-Signed By: Anthony Gomez MD at 10/30/2017 8:04 PM WSN:[id number] EKG PATIENT NAME: MARIA VICTORIA BOGGS : [id number] MR: [id number] V: [id number] EXAM DATE: ORDERING PHYSICIAN: ZACHARY WU TECHNOLOGIST: JOSEF Vazquez Reason : ARRHYTHMIA Blood Pressure : / mmHG Vent. Rate : 052 BPM Atrial Rate : 052 BPM P-R Int : 184 ms QRS Dur : 118 ms QT Int : 508 ms P-R-T Axes : 009 -39 083 degrees QTc Int : 472 ms Sinus bradycardia Left axis deviation Left ventricular hypertrophy with QRS widening Nonspecific ST and T wave abnormality Prolonged QT Abnormal ECG No previous ECGs available Confirmed by Dominic Du ([id number]) on 10/30/2017 10:54:23 PM Referred By: JAZMIN Confirmed By:Dominic Lott Condition: Improved Discharge: Home, Self Care Follow-Up Labs: Other (CBC, Comprehensive metabloic panel, UA and urine culture in approximately 1-2 weeks.) Time Spent: > 30 min Discharge Instructions Home Meds Active Scripts Potassium Chloride (POTASSIUM CHLORIDE) 10 Meq Capsule.er, 10 MEQ PO DAILY, #5 CAP 0 Refills Prov:ELA MILTON MD 11/03/17 Ciprofloxacin Hcl (CIPROFLOXACIN HCL) 250 Mg Tablet, 250 MG PO BID for 4 Days, #8 TAB 0 Refills Prov:ELA MILTON MD 11/03/17 Levothyroxine Sodium (SYNTHROID) 150 Mcg Tablet, 0.15 MG PO QDAY@06 for 30 Days, #30 TAB 1 Refill Prov:ELA MILTON MD 11/03/17 Insulin Glargine 100 Un/Ml Pen (LANTUS SOLOSTAR PEN) 100 Unit/1 Ml Insuln.pen, 10 UNIT SQ QHS for 30 Days, #1 VIAL Prov:ELA MILTON MD 11/03/17 Reported Medications Albuterol Sulfate 0.083% (ALBUTEROL SULFATE 0.083%) 2.5 Mg/3 Ml Vial.neb, 2.5 MG INH Q4H PRN for WHEEZING, INH 9/2/18 Allopurinol (ZYLOPRIM) 300 Mg Tablet, 300 MG PO QDAY, TAB 11/02/17 Fluticasone/Salmeterol (ADVAIR 250-50 DISKUS) 1 Each Disk.w.dev, 1 EACH IH BID 11/02/17 Fluoxetine Hcl (FLUOXETINE HCL) 20 Mg Capsule, 40 MG PO QDAY, CAPSULE 11/02/17 Albuterol Sulfate 90 Mcg/Act (PROAIR HFA 90 MCG/ACT) 8.5 Gm Hfa.aer.ad, 2 PUFF IH Q4-6H, INHALER 11/02/17 Omeprazole (OMEPRAZOLE) 20 Mg Tablet.dr, 20 MG PO BID, TAB 10/30/17 Lisinopril (LISINOPRIL) 40 Mg Tablet, 40 MG PO QDAY, TAB 10/30/17 Atorvastatin Calcium (LIPITOR) 40 Mg Tablet, 2 TAB PO QDAY, TAB 10/30/17 Aspirin (Children's Aspirin) 81 Mg Tab.chew 10/30/17 Discontinued Reported Medications Oxybutynin Chloride (DITROPAN XL) 10 Mg Tab.er.24, 10 MG PO QDAY, TAB 11/02/17 Furosemide (LASIX) 40 Mg Tablet, 2 TAB PO DAILY, TAB 11/02/17 [liraglutide] No Conflict Check, 18 MG M2 INJ DAILY 11/02/17 Acetaminophen/Hydrocodone (HYDROCODON-ACETAMINOPH 7.5-325) 1 Each Ea, 1 EACH PO Q6H, EA 11/02/17 Solifenacin Succinate (VESICARE) 10 Mg Tablet, 10 MG PO 10/30/17 Propranolol Hcl (PROPRANOLOL HCL) 80 Mg Capcr, 80 MG PO QDAY 10/30/17 Pregabalin (LYRICA) 50 Mg Capsule, 50 MG PO BID, CAPSULE 10/30/17 Levothyroxine Sodium (LEVOTHYROXINE SODIUM) 50 Mcg Tablet, 150 MCG PO QDAY, TAB 10/30/17 Bupropion Hcl (BUPROPION XL) 150 Mg Tab.er.24h, 300 MG PO QDAY, TAB 10/30/17 Insulin Glargine (LANTUS) 100 Unit/Ml Soln, 1 UNIT SUBQ DAILY, ML 10/30/17 Fluoxetine Hcl (FLUOXETINE HCL) 20 Mg Capsule, 20 MG PO QDAY, CAPSULE 10/30/17 [Insulin] No Conflict Check 10/30/17 Diet: Diabetic Activity: As Tolerated, No Exertion Special Instructions: Follow up with Primary Care Provider in next 5-7 days or sooner if any problems. Venous Thromboembolism Antithrombotics Is Pt On Any Antithrombotics?: Yes Problem Qualifiers (1) Altered mental status: Coma depth: Naldo coma 9-12 Coma timing: at hospital admission (2) Diabetes: Diabetes mellitus type: type 2 (3) UTI (urinary tract infection): Urinary tract infection type: acute cystitis Hematuria presence: without hematuria Qualified Codes: N30.00 - Acute cystitis without hematuria ELA MILTON MD Nov 03, 2017 10:13
== END 2017-11-03 12:10 | disposition home or self-care (01) | DRG 690 ==
LOC: ER 11:14 → MED 14:56 → ICU 17:26 → MED 11-02 16:00
PROVIDERS: ADMIT Internal Medicine; ATTEND Internal Medicine
DX: N30.00 Acute cystitis without hematuria (principal); Z68.42 Body mass index [BMI] 45.0-49.9, adult; S06.0X0A Concussion without loss of consciousness, initial encounter; B96.89 Other specified bacterial agents as the cause of diseases classified elsewhere; R41.0 Disorientation, unspecified; E11.42 Type 2 diabetes mellitus with diabetic polyneuropathy; Z79.4 Long term (current) use of insulin; E03.9 Hypothyroidism, unspecified; E66.9 Obesity, unspecified; Z86.73 Personal history of transient ischemic attack (TIA), and cerebral infarction without residual deficits; I49.9 Cardiac arrhythmia, unspecified; Z88.2 Allergy status to sulfonamides; Z91.040 Latex allergy status; Z79.82 Long term (current) use of aspirin; R40.2423 Glasgow coma scale score 9-12, at hospital admission; W18.12XA Fall from or off toilet with subsequent striking against object, initial encounter; T43.225A Adverse effect of selective serotonin reuptake inhibitors, initial encounter; T43.295A Adverse effect of other antidepressants, initial encounter; T42.75XA Adverse effect of unspecified antiepileptic and sedative-hypnotic drugs, initial encounter; T44.3X5A Adverse effect of other parasympatholytics [anticholinergics and antimuscarinics] and spasmolytics, initial encounter; Z91.81 History of falling
CPT/HCPCS: 36415; 36416; 70450; 70551; 71045; 72125; 81001; 82040; 82140; 82247; 82310; 82374; 82435; 82465; 82565; 82947; 82948; 83605; 83718; 83735; 84075; 84132; 84155; 84295; 84439; 84443; 84450; 84460; 84478; 84481; 84484; 84520; 85025; 87040; 87077; 87088; 87186; 93005; 93306; 96360; 96374; 97161; 99285; A9270; C1758; J0131; J0360; J0696; J1815; J2550; J3490; J7030; L0172